=== PATIENT | male | born 1965 | race Caucasian/White ===

== ENCOUNTER 2018-11-11 16:10 | Emergency (ER) | payer MEDICAID ==
[~2018-11-11] VITALS: Ht 167.6 cm; Wt 72.0 kg
[2018-11-11] MEDS ORDERED: INSNPH SQ (16:15)
[2018-11-11 16:25] LABS: GLUCOSE,POINT OF CARE 269 MG/DL (70-110)
[2018-11-11] MEDS: ERYTHROMYCIN 0.5% 3.5 GM TUBE OPHTHALMIC OINTMENT OS ONE (19:53)
[2018-11-11 19:59] VITALS: BP 130/80
== END 2018-11-11 20:00 | disposition home or self-care (01) ==
LOC: EMS 16:13
DX: H00.14 Chalazion left upper eyelid (principal); R03.0 Elevated blood-pressure reading, without diagnosis of hypertension; E11.9 Type 2 diabetes mellitus without complications; Z79.4 Long term (current) use of insulin